=== PATIENT | male | born 1955 | race Caucasian/White ===

== ENCOUNTER 2016-09-06 18:04 | Emergency (ER) | payer MEDICAID ==
[2016-05-30 10:43] VITALS: Ht 177.8 cm; Wt 70.3 kg
[~2016-09-06] VITALS: Ht 177.8 cm; Wt 70.3 kg
[2016-09-06 18:05] VITALS: BP 151/91; PULSE 100; RESP 18; TEMP 97.6; O2SAT 98
--- NOTE | 2016-09-06 18:20 | NUR ---
Patient triaged and placed in waiting room. VSS and patient appears in no acute distress at this time. Accompanied by SELF, awaiting available bed, and MD notified of need for MSE.
--- NOTE | 2016-09-06 20:08 | NUR ---
Patient to [facility] for evaluation.
--- NOTE | 2016-09-06 20:09 | NUR ---
PT IN [facility]ALLWAY HERE FOR COLOSTOMY SUPPLIES . DENIES ILLNESS OR INJURYS. ANH ZIMMERMAN NP AWARE.
--- NOTE | 2016-09-06 20:30 | NUR ---
ER ANH ZIMMERMAN RN at bedside examining patient.
[2016-09-06 20:41] VITALS: BP 138/87; PULSE 92; RESP 18; TEMP 97.6; O2SAT 98
--- NOTE | 2016-09-06 20:43 | NUR ---
Patient given written and verbal discharge instructions and verbalizes understanding. ER MD discussed with patient the results and treatment provided. Given copies of tests performed in ER. Patient in stable condition. ID arm band remoVED. COLOSTOMY SUPPLIES given. Patient educated on pain management and to follow up with PMD. Pain Scale 0/10. Opportunity for questions provided and answered.
== END 2016-09-06 20:41 | disposition home or self-care (01) ==
LOC: SED 18:04
DX: Z43.3 Encounter for attention to colostomy (principal); C61 Malignant neoplasm of prostate; Z88.5 Allergy status to narcotic agent; Z91.018 Allergy to other foods
CPT/HCPCS: 99283

== ENCOUNTER 2017-04-28 08:31 | Emergency (ER) | payer MEDICAID ==
[~2017-04-28] VITALS: Ht 177.8 cm; Wt 70.3 kg
[2017-04-28 08:31] VITALS: BP_SYST 160
[2017-04-28 09:21] LABS: BASOPHILS % (AUTO) 0.2 % (0.0-2.0); EOSINOPHILS % (AUTO) 0.6 % (0.0-4.0); HEMATOCRIT 46.9 % (36-54); HEMOGLOBIN 15.5 g/dL (14.0-18.0); LYMPHOCYTES % (AUTO) 13.7 % (20.5-51.5); MEAN CORPUSCULAR HEMOGLOBIN 31 pg (27-31); MEAN CORPUSCULAR HGB CONC 33 % (32-36); MEAN CORPUSCULAR VOLUME 93 fL (79.0-98.0); MONOCYTES # (AUTO) 0.4 K/uL (0.0-1.0); MONOCYTES % (AUTO) 5.1 % (1.7-9.3); NEUTROPHILS # (AUTO) 6.2 K/uL (1.8-7.7); NEUTROPHILS % (AUTO) 80.4 % (40.0-70.0); PLATELET COUNT (AUTO) 407 K/uL (130-430); RED BLOOD CELL COUNT(AUTO) 5.04 MIL/uL (4.2-6.2); RED CELL DISTRIBUTION WIDTH 13.1 % (9.0-15.0); WHITE BLOOD COUNT (AUTO) 7.6 K/uL (4.8-10.8)
[2017-04-28] MEDS ORDERED: SULFAMETHOXAZOLE/TRIMETHOPR DS 1 TABLET PO ONE (09:30)
[2017-04-28] MEDS ORDERED: CEPHALEXIN 500 MG CAPSULE PO ONE (09:30)
[2017-04-28 09:40] LABS: CALCIUM 9.6 mg/dL (8.4-11.0); CREATININE 0.78 mg/dL (0.55-1.30); POTASSIUM 4.1 mmol/L (3.5-5.1)
[2017-04-28 10:24] VITALS: BP_SYST 155
== END 2017-04-28 10:24 | disposition home or self-care (01) ==
LOC: SED 08:31
DX: L03.113 Cellulitis of right upper limb (principal); K21.9 Gastro-esophageal reflux disease without esophagitis; Z85.46 Personal history of malignant neoplasm of prostate
CPT/HCPCS: 36415; 80048; 83605; 85025; 87040-TC; 99285

== ENCOUNTER 2017-04-29 12:17 | Emergency (ER) | payer MEDICAID ==
[~2017-04-29] VITALS: Ht 177.8 cm; Wt 70.3 kg
[2017-04-29 12:33] VITALS: BP_SYST 140
[2017-04-29 15:40] VITALS: BP_SYST 140
[2017-04-29] MEDS ORDERED: BACITRACIN 1 GM OINT TP ONE (15:42)
== END 2017-04-29 15:40 | disposition home or self-care (01) ==
LOC: SED 12:17
DX: L03.113 Cellulitis of right upper limb (principal); K21.9 Gastro-esophageal reflux disease without esophagitis; Z85.46 Personal history of malignant neoplasm of prostate; Z88.5 Allergy status to narcotic agent; Z91.018 Allergy to other foods
CPT/HCPCS: 99281

== ENCOUNTER 2018-12-22 07:41 | Inpatient (IN) | payer MEDICAID ==
[2018-12-22] VITALS (16 sets, daily range): BP systolic 77–141
[~2018-12-22] VITALS: Ht 177.8 cm; Wt 49.0 kg
[2018-12-22] MEDS ORDERED: IPRATROPIUM/ALBUTEROL SULFATE 3 ML AMPUL.NEB (DUONEB) INH ONE ×2 (08:15→12:00)
[2018-12-22] MEDS ORDERED: NS 1000 ML IV.SOLN IV ONE (08:15)
[2018-12-22] MEDS ORDERED: VANCOMYCIN HCL 1,000 MG in D5W 250 ML IV ONE (08:15)
[2018-12-22] MEDS ORDERED: MORPHINE 4 MG/ML INJ. SYRINGE IVP ONE ×2 (08:15→11:00)
[2018-12-22] MEDS ORDERED: IPRATROPIUM/ALBUTEROL SULFATE 3 ML AMPUL.NEB (DUONEB) ONE (08:23)
[2018-12-22] MEDS ORDERED: VANCOMYCIN HCL 1000 MG/VIAL IV ONE (08:48)
[2018-12-22 09:11] LABS: HEMATOCRIT 42.6 % (36-54); MEAN CORPUSCULAR HEMOGLOBIN 26 pg (27-31); MEAN CORPUSCULAR HGB CONC 33 % (32-36); MEAN CORPUSCULAR VOLUME 79 fL (79.0-98.0); PLATELET COUNT (AUTO) 579 K/uL (130-430); RED BLOOD CELL COUNT(AUTO) 5.39 MIL/uL (4.2-6.2); RED CELL DISTRIBUTION WIDTH 18.7 % (9.0-15.0)
[2018-12-22 09:13] LABS: WHITE BLOOD COUNT (AUTO) 33.1 K/uL (4.8-10.8)
[2018-12-22 09:17] LABS: CALCIUM 10.6 mg/dL (8.4-11.0); CREATININE 3.32 mg/dL (0.55-1.30)
[2018-12-22 09:20] LABS: INR 2.6 (0.80-1.20); PROTHROMBIN TIME 25.2 SECS (9.5-12.5)
[2018-12-22 09:25] LABS: ALBUMIN 2.3 g/dL (3.4-4.8); TOTAL BILIRUBIN 0.9 mg/dL (0.0-1.0)
[2018-12-22 09:52] LABS: BAND % (MANUAL) 18 % (0-6); BASOPHILS % (MANUAL) 0 % (0-2); EOSINOPHILS % (MANUAL) 0 % (0-7); LYMPHOCYTES % (MANUAL) 1 % (20-46); MONOCYTES % (MANUAL) 2 % (0-11)
[2018-12-22] MEDS ORDERED: FLO44 INH (11:19)
[2018-12-22] MEDS ORDERED: ONDA4TAB5 PO (11:19)
[2018-12-22] MEDS ORDERED: SENN1TAB6 PO (11:19)
[2018-12-22] MEDS ORDERED: MORP30TA59 PO (11:19)
[2018-12-22] MEDS ORDERED: PRO40 PO (11:19)
[2018-12-22] MEDS ORDERED: METO-290 PO (11:19)
[2018-12-22] MEDS ORDERED: RANI-362 PO (11:19)
[2018-12-22] MEDS ORDERED: MUPIROCIN 2% TOPICAL OINTMENT 22 GM NS PRN (11:30)
[2018-12-22] MEDS ORDERED: LORazepam 2 MG/ML VIAL IVP PRN (11:30)
[2018-12-22] MEDS ORDERED: DOCUSATE SODIUM 100 MG CAPSULE PO PRN (11:30)
[2018-12-22] MEDS ORDERED: KETOROLAC TROMETHAMINE 30 MG VIAL IVP PRN (11:30)
[2018-12-22] MEDS ORDERED: ACETAMINOPHEN 325 MG TABLET PO PRN (11:30)
[2018-12-22] MEDS ORDERED: ZOLPIDEM TARTRATE 5 MG TABLET PO PRN (11:30)
[2018-12-22] MEDS ORDERED: ONDANSETRON HCL 4 MG/2 ML VIAL IVP PRN (11:30)
[2018-12-22] MEDS ORDERED: NACL 0.9% 1,000 ML IV SCH ×2 (11:45→12:00)
[2018-12-22] MEDS: NACL 0.9% 1,000 ML IV SCH ×2 (15:32→21:58)
[2018-12-22] MEDS: PIPERACILLIN/TAZO 2.25G/DEX-IS 50 ML IV SCH (18:52)
[2018-12-22] MEDS: MICAFUNGIN SODIUM 100 MG in NS 100 ML IV SCH (19:37)
[2018-12-22] MEDS: AZITHROMYCIN 500 MG in NS 250 ML IV SCH (19:37)
[2018-12-22] MEDS: IPRATROPIUM/ALBUTEROL SULFATE 3 ML AMPUL.NEB (DUONEB) INH SCH (20:49)
[2018-12-22] MEDS ORDERED: SODIUM BICARBONATE 8.4% JECT 50 MEQ/50 ML SYRINGE ONE (20:51)
[2018-12-22] MEDS: HEPARIN SODIUM,PORCINE 5000 UNITS/ML VIAL SUBCUT SCH (20:55)
[2018-12-22] MEDS: SODIUM BICARBONATE 8.4% JECT 100 MEQ in D5W 1,000 ML IV SCH (21:16)
[2018-12-23] VITALS (17 sets, daily range): BP systolic 83–118
[2018-12-23] MEDS ORDERED: SODIUM BICARBONATE 8.4% JECT 50 MEQ/50 ML SYRINGE ONE (04:39)
[2018-12-23] MEDS: SODIUM BICARBONATE 8.4% JECT 100 MEQ in D5W 1,000 ML IV SCH ×2 (04:44→17:13)
[2018-12-23] MEDS: PIPERACILLIN/TAZO 2.25G/DEX-IS 50 ML IV SCH ×4 (05:26→18:29)
[2018-12-23 06:51] LABS: BASOPHILS % (AUTO) 0.2 % (0.0-2.0); HEMATOCRIT 29.9 % (36-54); HEMOGLOBIN 9.8 g/dL (14.0-18.0); LYMPHOCYTES # (AUTO) 0.1 K/uL (1.0-5.5); LYMPHOCYTES % (AUTO) 0.3 % (20.5-51.5); MEAN CORPUSCULAR HEMOGLOBIN 26 pg (27-31); MEAN CORPUSCULAR HGB CONC 33 % (32-36); MEAN CORPUSCULAR VOLUME 78 fL (79.0-98.0); MONOCYTES # (AUTO) 0.3 K/uL (0.0-1.0); MONOCYTES % (AUTO) 1.3 % (1.7-9.3); NEUTROPHILS # (AUTO) 24.3 K/uL (1.8-7.7); PLATELET COUNT (AUTO) 415 K/uL (130-430); RED BLOOD CELL COUNT(AUTO) 3.83 MIL/uL (4.2-6.2); RED CELL DISTRIBUTION WIDTH 18.5 % (9.0-15.0); WHITE BLOOD COUNT (AUTO) 24.7 K/uL (4.8-10.8)
[2018-12-23 07:11] LABS: ALBUMIN 1.5 g/dL (3.4-4.8); CALCIUM 8.2 mg/dL (8.4-11.0); CREATININE 2.28 mg/dL (0.55-1.30); POTASSIUM 3.3 mmol/L (3.5-5.1); TOTAL BILIRUBIN 0.5 mg/dL (0.0-1.0); VANCOMYCIN,RANDOM 11.1 ug/mL
[2018-12-23 07:29] LABS: NEUTROPHILS % (AUTO) 98.2 % (40.0-70.0)
[2018-12-23] MEDS: IPRATROPIUM/ALBUTEROL SULFATE 3 ML AMPUL.NEB (DUONEB) INH SCH ×3 (07:29→21:00)
[2018-12-23 07:52] LABS: INR 1.4 (0.80-1.20); PROTHROMBIN TIME 13.8 SECS (9.5-12.5)
[2018-12-23] MEDS: POTASSIUM CHLORIDE 20 MEQ TAB.PRT.SR PO PRN (08:35)
[2018-12-23] MEDS: NACL 0.9% 1,000 ML IV SCH ×2 (08:35→17:18)
[2018-12-23] MEDS: MAGNESIUM SULFATE 50 ML IV PRN (08:35)
[2018-12-23] MEDS: HEPARIN SODIUM,PORCINE 5000 UNITS/ML VIAL SUBCUT SCH ×2 (08:44→21:11)
[2018-12-23] MEDS ORDERED: VANCOMYCIN HCL 750 MG/NS 250 ML IV ONE (09:00)
[2018-12-23] MEDS: AZITHROMYCIN 500 MG in NS 250 ML IV SCH (17:14)
[2018-12-23] MEDS: MICAFUNGIN SODIUM 100 MG in NS 100 ML IV SCH (18:32)
[2018-12-24 00:18] VITALS: BP_SYST 95
[2018-12-24] MEDS: PIPERACILLIN/TAZO 2.25G/DEX-IS 50 ML IV SCH ×5 (00:54→23:06)
[2018-12-24] MEDS: SODIUM BICARBONATE 8.4% JECT 100 MEQ in D5W 1,000 ML IV SCH ×3 (04:02→15:25)
[2018-12-24] MEDS: NACL 0.9% 1,000 ML IV SCH ×3 (05:49→15:25)
[2018-12-24 06:52] LABS: BASOPHILS # (AUTO) 0.1 K/uL (0.0-0.2); BASOPHILS % (AUTO) 0.3 % (0.0-2.0); EOSINOPHILS % (AUTO) 0.1 % (0.0-4.0); HEMATOCRIT 25.2 % (36-54); HEMOGLOBIN 8.2 g/dL (14.0-18.0); LYMPHOCYTES # (AUTO) 0.2 K/uL (1.0-5.5); MEAN CORPUSCULAR HEMOGLOBIN 25 pg (27-31); MEAN CORPUSCULAR HGB CONC 33 % (32-36); MEAN CORPUSCULAR VOLUME 77 fL (79.0-98.0); MONOCYTES # (AUTO) 0.4 K/uL (0.0-1.0); MONOCYTES % (AUTO) 1.6 % (1.7-9.3); NEUTROPHILS # (AUTO) 22.3 K/uL (1.8-7.7); PLATELET COUNT (AUTO) 325 K/uL (130-430); RED BLOOD CELL COUNT(AUTO) 3.27 MIL/uL (4.2-6.2); RED CELL DISTRIBUTION WIDTH 18.5 % (9.0-15.0)
[2018-12-24] MEDS: MORPHINE 2 MG/ML INJ. SYRINGE IVP PRN ×9 (07:04→22:56)
[2018-12-24] MEDS: IPRATROPIUM/ALBUTEROL SULFATE 3 ML AMPUL.NEB (DUONEB) INH SCH ×3 (07:16→21:00)
[2018-12-24] MEDS ORDERED: IPRATROPIUM/ALBUTEROL SULFATE 3 ML AMPUL.NEB (DUONEB) ONE (07:26)
[2018-12-24 08:00] VITALS: BP_SYST 95
[2018-12-24 08:22] LABS: CALCIUM 7.9 mg/dL (8.4-11.0); CREATININE 1.53 mg/dL (0.55-1.30)
[2018-12-24 08:33] LABS: POTASSIUM 2.2 mmol/L (3.5-5.1)
[2018-12-24] MEDS: POTASSIUM CHLORIDE 20 MEQ TAB.PRT.SR PO PRN (08:39)
[2018-12-24] MEDS: HEPARIN SODIUM,PORCINE 5000 UNITS/ML VIAL SUBCUT SCH ×2 (08:42→20:36)
[2018-12-24 12:52] VITALS: BP_SYST 93
[2018-12-24] MEDS ORDERED: VANCOMYCIN HCL 500 MG in NS 100 ML IV SCH (14:00)
[2018-12-24 16:30] VITALS: BP_SYST 94
[2018-12-24] MEDS: AZITHROMYCIN 500 MG in NS 250 ML IV SCH (16:33)
[2018-12-24] MEDS ORDERED: POTASSIUM CHLORIDE 20 MEQ TAB.PRT.SR PO ONE (17:00)
[2018-12-24] MEDS: MICAFUNGIN SODIUM 100 MG in NS 100 ML IV SCH (18:54)
[2018-12-24 20:00] VITALS: BP_SYST 114
[2018-12-24] MEDS: MORPHINE SULFATE 15 MG TABLET.ER PO SCH (21:29)
[2018-12-25] VITALS (7 sets, daily range): BP systolic 91–128
[2018-12-25] MEDS: PIPERACILLIN/TAZO 2.25G/DEX-IS 50 ML IV SCH ×2 (05:27→12:23)
[2018-12-25] MEDS: MORPHINE 2 MG/ML INJ. SYRINGE IVP PRN ×5 (06:24→20:58)
[2018-12-25 07:23] LABS: EOSINOPHILS # (AUTO) 0.2 K/uL (0.0-0.4); HEMATOCRIT 23.3 % (36-54); HEMOGLOBIN 7.7 g/dL (14.0-18.0); LYMPHOCYTES # (AUTO) 0.2 K/uL (1.0-5.5); LYMPHOCYTES % (AUTO) 1.2 % (20.5-51.5); MEAN CORPUSCULAR HEMOGLOBIN 26 pg (27-31); MEAN CORPUSCULAR HGB CONC 33 % (32-36); MEAN CORPUSCULAR VOLUME 77 fL (79.0-98.0); MONOCYTES # (AUTO) 0.4 K/uL (0.0-1.0); MONOCYTES % (AUTO) 1.9 % (1.7-9.3); NEUTROPHILS # (AUTO) 17.9 K/uL (1.8-7.7); PLATELET COUNT (AUTO) 272 K/uL (130-430); RED BLOOD CELL COUNT(AUTO) 3.02 MIL/uL (4.2-6.2); RED CELL DISTRIBUTION WIDTH 18.9 % (9.0-15.0); WHITE BLOOD COUNT (AUTO) 18.7 K/uL (4.8-10.8)
[2018-12-25 07:27] LABS: CALCIUM 7.8 mg/dL (8.4-11.0); CREATININE 1.28 mg/dL (0.55-1.30)
[2018-12-25 07:33] LABS: POTASSIUM 2.3 mmol/L (3.5-5.1)
[2018-12-25 07:43] LABS: NEUTROPHILS % (AUTO) 95.9 % (40.0-70.0)
[2018-12-25] MEDS: POTASSIUM CHLORIDE 20 MEQ TAB.PRT.SR PO PRN (07:57)
[2018-12-25] MEDS ORDERED: POTASSIUM CHLORIDE 20 MEQ TAB.PRT.SR PO ONE (08:15)
[2018-12-25] MEDS: MORPHINE SULFATE 15 MG TABLET.ER PO SCH ×2 (08:17→22:18)
[2018-12-25] MEDS: HEPARIN SODIUM,PORCINE 5000 UNITS/ML VIAL SUBCUT SCH ×2 (08:18→20:55)
[2018-12-25] MEDS: IPRATROPIUM/ALBUTEROL SULFATE 3 ML AMPUL.NEB (DUONEB) INH SCH ×3 (09:00→21:00)
[2018-12-25] MEDS: MAGNESIUM OXIDE 400 MG TABLET PO SCH ×2 (10:09→20:53)
[2018-12-25] MEDS: MAGNESIUM SULFATE 50 ML IV PRN (10:10)
[2018-12-25] MEDS: AZITHROMYCIN 500 MG in NS 250 ML IV SCH (17:20)
[2018-12-25] MEDS: MICAFUNGIN SODIUM 100 MG in NS 100 ML IV SCH (18:29)
[2018-12-25] MEDS: POTASSIUM CHLORIDE 20 MEQ TAB.PRT.SR PO SCH (20:53)
[2018-12-25] MEDS: ceFAZolin SODIUM 1 GM in D5W 50 ML IV SCH (20:53)
[2018-12-26 00:35] VITALS: BP_SYST 116
[2018-12-26] MEDS: ceFAZolin SODIUM 1 GM in D5W 50 ML IV SCH ×2 (05:40→13:42)
[2018-12-26] MEDS: MORPHINE 2 MG/ML INJ. SYRINGE IVP PRN ×5 (06:17→17:25)
[2018-12-26 06:23] LABS: BASOPHILS % (AUTO) 0.1 % (0.0-2.0); EOSINOPHILS # (AUTO) 0.3 K/uL (0.0-0.4); EOSINOPHILS % (AUTO) 2.9 % (0.0-4.0); HEMATOCRIT 25.4 % (36-54); HEMOGLOBIN 8.6 g/dL (14.0-18.0); LYMPHOCYTES # (AUTO) 0.3 K/uL (1.0-5.5); LYMPHOCYTES % (AUTO) 2.7 % (20.5-51.5); MEAN CORPUSCULAR HEMOGLOBIN 26 pg (27-31); MEAN CORPUSCULAR HGB CONC 34 % (32-36); MEAN CORPUSCULAR VOLUME 78 fL (79.0-98.0); MONOCYTES # (AUTO) 0.4 K/uL (0.0-1.0); MONOCYTES % (AUTO) 3.7 % (1.7-9.3); NEUTROPHILS # (AUTO) 9.9 K/uL (1.8-7.7); NEUTROPHILS % (AUTO) 90.6 % (40.0-70.0); PLATELET COUNT (AUTO) 252 K/uL (130-430); RED BLOOD CELL COUNT(AUTO) 3.27 MIL/uL (4.2-6.2); RED CELL DISTRIBUTION WIDTH 19.2 % (9.0-15.0)
[2018-12-26 07:03] LABS: WHITE BLOOD COUNT (AUTO) 10.9 K/uL (4.8-10.8)
[2018-12-26 07:13] LABS: CALCIUM 8.3 mg/dL (8.4-11.0); CREATININE 1.07 mg/dL (0.55-1.30)
[2018-12-26 07:37] LABS: POTASSIUM 2.8 mmol/L (3.5-5.1)
[2018-12-26 07:50] VITALS: BP_SYST 115
[2018-12-26] MEDS: POTASSIUM CHLORIDE 20 MEQ TAB.PRT.SR PO SCH (08:59)
[2018-12-26] MEDS: POTASSIUM CHLORIDE 20 MEQ TAB.PRT.SR PO PRN (08:59)
[2018-12-26] MEDS: MORPHINE SULFATE 15 MG TABLET.ER PO SCH (08:59)
[2018-12-26] MEDS: MAGNESIUM OXIDE 400 MG TABLET PO SCH (08:59)
[2018-12-26] MEDS: IPRATROPIUM/ALBUTEROL SULFATE 3 ML AMPUL.NEB (DUONEB) INH SCH ×2 (09:00→15:00)
[2018-12-26] MEDS: HEPARIN SODIUM,PORCINE 5000 UNITS/ML VIAL SUBCUT SCH (09:02)
[2018-12-26] MEDS ORDERED: POTASSIUM CHLORIDE 20 MEQ TAB.PRT.SR PO ONE (10:30)
[2018-12-26 12:39] VITALS: BP_SYST 138
[2018-12-26 16:41] VITALS: BP_SYST 130
[2018-12-26] MEDS: AZITHROMYCIN 500 MG in NS 250 ML IV SCH (17:25)
[2018-12-26 17:55] VITALS: BP_SYST 128
[2018-12-26] MEDS ORDERED: POTASSIUM CHLORIDE 20 MEQ TAB.PRT.SR PO SCH (21:00)
== END 2018-12-26 18:28 | disposition hospice, home (50) | DRG 720 ==
LOC: SED 07:41 → STU 11:30 → SIC 13:50 → STU 12-23 16:00
PROVIDERS: ADMIT General Practice; ATTEND General Practice
PROC: 02HV33Z Insertion of Infusion Device into Superior Vena Cava, Percutaneous Approach (ICD-10-PCS; principal; 2018-12-23)
PROC: B548ZZA Ultrasonography of Superior Vena Cava, Guidance (ICD-10-PCS; 2018-12-23)
DX: A41.9 Sepsis, unspecified organism (principal); N17.0 Acute kidney failure with tubular necrosis; J69.0 Pneumonitis due to inhalation of food and vomit; R65.21 Severe sepsis with septic shock; E87.2 Acidosis; C78.00 Secondary malignant neoplasm of unspecified lung; D64.9 Anemia, unspecified; E44.0 Moderate protein-calorie malnutrition; E87.1 Hypo-osmolality and hyponatremia; E87.6 Hypokalemia; G89.29 Other chronic pain; K21.9 Gastro-esophageal reflux disease without esophagitis; E87.8 Other disorders of electrolyte and fluid balance, not elsewhere classified; Z51.5 Encounter for palliative care; Z66 Do not resuscitate; Z85.048 Personal history of other malignant neoplasm of rectum, rectosigmoid junction, and anus; Z85.46 Personal history of malignant neoplasm of prostate; Z87.891 Personal history of nicotine dependence; Z90.49 Acquired absence of other specified parts of digestive tract; Z93.6 Other artificial openings of urinary tract status; Z88.8 Allergy status to other drugs, medicaments and biological substances; Z91.018 Allergy to other foods; Z68.1 Body mass index [BMI] 19.9 or less, adult
CPT/HCPCS: 36415; 36600; 71045; 80048; 80053; 80202-TC; 82803-TC; 83036; 83605; 83735-TC; 84484; 85007; 85025; 85027; 85610-TC; 85730-TC; 87040-TC; 87070-TC; 87081; 87086; 87101; 87186-TC; 87205-TC; 87449; 93005; 94640; 94760; 96361; 96365; 96366; 96375; 96376; 99285; A4371; A5061; C1751; G0378; J0456; J0690; J1644; J1885; J2248; J2270; J2543; J3370; J3475; J7030; J7050; J7060; J7620